=== PATIENT | female | born 1960 | race Caucasian/White ===

== ENCOUNTER 2019-03-03 07:29 | Day surgery (SDC) | payer BC ==
[2019-03-03] VITALS (8 sets, daily range): BP systolic 118–137; BP diastolic 60–74
[~2019-03-03] VITALS: Ht 154.9 cm; Wt 73.5 kg
[2019-03-03] MEDS ORDERED: dexamethasone sod phosphate 4mg/ml inj. IV ONE (07:45)
[2019-03-03] MEDS ORDERED: acetaminophen 325mg tablet PO ONE (07:50)
[2019-03-03] MEDS ORDERED: diphenhydrAMINE 25mg capsule PO ONE (07:50)
[2019-03-03] MEDS ORDERED: LIDOcaine 1% (10mg/ml) 2ml vial ONE (08:07)
[2019-03-03] MEDS ORDERED: INSU100V41 SQ (08:50)
[2019-03-03] MEDS ORDERED: LEVO112T39 PO (08:50)
[2019-03-03] MEDS ORDERED: CHOL50004 PO (08:50)
== END 2019-03-03 10:50 | disposition home or self-care (01) ==
LOC: SSTAY O 07:29
PROVIDERS: ATTEND Internal Medicine Hematology & Oncology
DX: D75.1 Secondary polycythemia (principal); D69.6 Thrombocytopenia, unspecified
CPT/HCPCS: 36415; 36430; 86885; 86900; 86901; J1100; J2001; P9035; Q0163

== ENCOUNTER 2019-03-28 00:01 | Outpatient (CLI) | payer BC ==
[~2019-03-28 00:01] MED LIST: CHOL50004 PO; INSU100V41 SQ; LEVO112T39 PO
== END 2019-03-28 23:59 | disposition home or self-care (01) ==
LOC: DIABETIC 00:01
PROVIDERS: ATTEND Specialist
DX: E11.9 Type 2 diabetes mellitus without complications (principal)
CPT/HCPCS: G0108

== ENCOUNTER 2019-05-26 01:47 | Outpatient (CLI) | payer BC | END 2019-05-26 23:59 | disposition home or self-care (01) | LOC: DIABETIC 01:47 | PROVIDERS: ATTEND Specialist | DX: E11.9 Type 2 diabetes mellitus without complications (principal) | CPT/HCPCS: G0108 ==